=== PATIENT | male | born 1975 | race Two or more races ===

== ENCOUNTER 2018-10-29 21:48 | Emergency (ER) | payer OTHER ==
[~2018-10-29] VITALS: Ht 190.5 cm; Wt 120.2 kg
[2018-10-29] MEDS ORDERED: NIFE60TA3 (22:05)
== END 2018-10-29 23:28 | disposition home or self-care (01) ==
LOC: ER 21:48
DX: R10.84 Generalized abdominal pain (principal); R11.2 Nausea with vomiting, unspecified